=== PATIENT | female | born 2000 | race Hispanic/Latino ===

== ENCOUNTER 2019-04-21 00:52 | Observation (INO) | payer MEDICAID ==
[~2019-04-21] VITALS: Ht 142.2 cm; Wt 86.2 kg
[2019-04-21] VITALS (10 sets, daily range): BP systolic 77–118; BP diastolic 56–70
[2019-04-21 01:29] LABS: BASOPHILS % (AUTO) 0.6 % (0.0-5.0); EOSINOPHILS % (AUTO) 1.4 % (0.0-8.0); HEMATOCRIT 34.5 % (36-48); LYMPHOCYTES % (AUTO) 29.7 % (21.0-51.0); MEAN CORPUSCULAR HEMOGLOBIN 24.8 pg (27.0-33.0); MEAN CORPUSCULAR HGB CONC 32.6 g/dL (32.0-36.0); MEAN CORPUSCULAR VOLUME 76.1 fL (80-100); MONOCYTES % (AUTO) 7.3 % (3.0-13.0); PLATELET COUNT (AUTO) 211 K/uL (130-400); RED BLOOD CELL COUNT(AUTO) 4.53 MIL/uL (4.00-5.50); RED CELL DISTRIBUTION WIDTH 17.5 % (11.0-15.5)
[2019-04-21 01:39] LABS: CREATININE 0.9 mg/dL (0.5-1.5); POTASSIUM 3.3 mmol/L (3.5-5.1)
[2019-04-21 01:43] LABS: ALBUMIN 3.4 g/dL (3.5-5.0); BILIRUBIN,TOTAL 0.1 mg/dL (0.2-1.0); TOTAL PROTEIN, SERUM 7.7 g/dL (6.0-8.3)
[2019-04-21 01:53] LABS: HCG,QUAL RESULT POSITIVE (NEGATIVE)
[2019-04-21 01:56] LABS: APPEARANCE,URINE Cloudy (CLEAR); BILIRUBIN,URINE Negative (NEGATIVE); COLOR,URINE Orange (YELLOW); GLUCOSE, URINE (UA) Negative (NEGATIVE); KETONES,URINE Negative (NEGATIVE); LEUKOCYTE ESTERASE ,URINE Moderate (NEGATIVE); NITRATE,URINE Negative (NEGATIVE); OCCULT BLOOD,URINE Large (NEGATIVE); PH,URINE 5.5 (5.0-8.0); PROTEIN,URINE POS 2+ mg/dL (NEGATIVE)
[2019-04-21 01:59] LABS: AMORPHOUS SEDIMENT,UR Moderate /LPF (None Seen); BACTERIA,URINE Moderate /HPF (None Seen); MUCUS,URINE Moderate LPF (None Seen); RBC,URINE TNTC /HPF (0-1); SQUAMOUS EPITHELIAL CELL,UR Few /HPF (0-2); WBC,URINE 26-50 /HPF (0-1)
[2019-04-21] MEDS ORDERED: SODIUM CHLORIDE 0.9% 1000ML 1,000 ML IV ONE (02:14)
[2019-04-21] MEDS ORDERED: METRONIDAZOLE 500MG/100ML BAG 100 ML ONE (02:14)
[2019-04-21] MEDS ORDERED: ZOSYN 3.375GM+NS 50ML 50 ML IV ONE (02:14)
[2019-04-21] MEDS ORDERED: KETOROLAC TROMETHAMINE 30MG/ML IV PRN (04:30)
[2019-04-21] MEDS ORDERED: SODIUM CHLORIDE 0.9% 1000ML 1,000 ML IV SCH (04:30)
--- NOTE | 2019-04-21 07:15 | NUR ---
pt was taken to L&D via her bed by Gee Domínguez RN Addendum: 04/21/19 at 0744 by MONI SALAMANCA RN Amended: Links added.
--- NOTE | 2019-04-21 07:15 | NUR ---
Patient was taken to l/d via bed for D&C by Gee Ramon prior to assessment. Patient stable per report and afebrile.
[2019-04-21] MEDS ORDERED: LIDOCAINE PF 2% 5ML ABBOJECT ONE (07:27)
[2019-04-21] MEDS ORDERED: ROCURONIUM 10MG/1ML SYR 10 MG/ML ML ONE (07:28)
[2019-04-21] MEDS ORDERED: ONDANSETRON HCL 4 MG/2 ML VIAL ONE (07:28)
[2019-04-21] MEDS ORDERED: PROPOFOL 10 MG/ML 20ML VIAL IV ONE (07:28)
[2019-04-21] MEDS ORDERED: FENTANYL CITRATE PF 50 MCG/1 ML 2ML VIAL ONE (07:29)
[2019-04-21] MEDS ORDERED: OXYTOCIN 10 USP UNITS/ML ONE (07:42)
--- NOTE | 2019-04-21 09:00 | NUR ---
REPORT RECEIVED FROM Page HANSON RN TO TRANSFER PATIENT BACK TO FLOOR. PATIENT IS STABLE AND INSTRUCTED ON PLAN OF CARE TO INCLUDE REPEAT OF CBC AT 1200NOON AND REPORT TO DR. JULIAN RESULTS. PATIENT HAD DILATATION AND CURETTAGE AND IS RETURNING BACK TO FLOOR WITH ORDERS TO CONTINUE ANTIBIOTICS DUE AT 10AM AND 11AM AND AFTER REPORTING RESULTS TO DR. JULIAN, HE WILL DECIDE IF PATIENT CAN GO HOME.
[2019-04-21] MEDS ORDERED: METRONIDAZOLE 500MG/100ML BAG 100 ML IV SCH (10:00)
[2019-04-21] MEDS ORDERED: ZOSYN 3.375GM+NS 50ML 50 ML IV SCH (11:00)
--- NOTE | 2019-04-21 11:30 | NUR ---
PATIENT WAS ASSISTED UP TO BATHROOM BY KATHERINE AND WAS ABLE TO VOID WITHOUT DIFFICULTY 300CC.
[2019-04-21 14:06] LABS: BASOPHILS % (AUTO) 0.6 % (0.0-5.0); EOSINOPHILS % (AUTO) 1.2 % (0.0-8.0); HEMATOCRIT 31.4 % (36-48); LYMPHOCYTES % (AUTO) 27.4 % (21.0-51.0); MEAN CORPUSCULAR HEMOGLOBIN 24.5 pg (27.0-33.0); MEAN CORPUSCULAR HGB CONC 32.2 g/dL (32.0-36.0); MEAN CORPUSCULAR VOLUME 76.3 fL (80-100); MONOCYTES % (AUTO) 6.6 % (3.0-13.0); NEUTROPHILS % (AUTO) 64.2 % (40.0-77.0); PLATELET COUNT (AUTO) 193 K/uL (130-400); RED BLOOD CELL COUNT(AUTO) 4.12 MIL/uL (4.00-5.50); RED CELL DISTRIBUTION WIDTH 17.9 % (11.0-15.5)
--- NOTE | 2019-04-21 15:30 | NUR ---
PATIENT HAD IV ANTIBIOTICS COMPLETED AND PIV WAS REMOVED. DISCHARGE INSTRUCTIONS GIVEN AND VITAL SIGNS OBTAINED. PATIENT DENIES PAIN. PATIENT ENCOURAGED AND INSTRUCTED TO CALL TUESDAY, FOR FOLLOW UP APPT. WITH [facility]. VERBALIZED UNDERSTANDING INSTRUCTIONS GIVEN.
--- NOTE | 2019-04-21 16:15 | NUR ---
PATIENT CALLED AND STATES HER RIDE WILL NOT BE HERE FOR ANOTHER 45 MINUTES.
--- NOTE | 2019-04-21 19:50 | NUR ---
PATIENT WAS TAKEN VIA W/C TO ER LOBBY TO WAIT FOR HER RIDE. PATIENT STABLE AND WAS ACCOMPANIED BY HER SIGNIFICANT OTHER.
== END 2019-04-21 19:50 | disposition home or self-care (01) ==
LOC: EDH 00:52 → EDHIP 00:53 → WSH 04:30
PROVIDERS: ADMIT Obstetrics & Gynecology; ATTEND Obstetrics & Gynecology
DX: O03.37 Sepsis following incomplete spontaneous abortion (principal); O99.351 Diseases of the nervous system complicating pregnancy, first trimester; O34.219 Maternal care for unspecified type scar from previous cesarean delivery; R56.9 Unspecified convulsions; Z3A.00 Weeks of gestation of pregnancy not specified
CPT/HCPCS: 36415; 59812; 76856; 80053; 81001; 81025; 83605; 85025 ×2; 86850; 86900; 86901; 87040 ×2; 88305 ×2; 96365; 96366 ×2; 96367; 99284; A4351; A4606; G0378 ×14; J2001; J2405; J2543 ×2; J2590; J2704; J3010; J3490 ×2; J7030; J7120; 59830

== ENCOUNTER 2019-09-24 18:13 | Emergency (ER) | payer MEDICAID | END 2019-09-24 19:37 | disposition home or self-care (01) | LOC: EDH 18:13 | DX: G89.29 Other chronic pain (principal); M79.10 Myalgia, unspecified site; Z98.890 Other specified postprocedural states; Z86.73 Personal history of transient ischemic attack (TIA), and cerebral infarction without residual deficits | CPT/HCPCS: 99281 ==

== ENCOUNTER 2019-10-01 18:23 | Emergency (ER) | payer MEDICAID ==
[2019-10-01 18:53] LABS: APPEARANCE,URINE Clear (CLEAR); BILIRUBIN,URINE Negative (NEGATIVE); COLOR,URINE Yellow (YELLOW); GLUCOSE, URINE (UA) Negative (NEGATIVE); KETONES,URINE Trace mg/dL (NEGATIVE); LEUKOCYTE ESTERASE ,URINE Negative (NEGATIVE); NITRATE,URINE Negative (NEGATIVE); OCCULT BLOOD,URINE Negative (NEGATIVE); PH,URINE 5.5 (5.0-8.0); PROTEIN,URINE Negative (NEGATIVE)
[2019-10-01 18:55] LABS: HCG,QUAL RESULT NEGATIVE (NEGATIVE)
== END 2019-10-01 19:53 | disposition home or self-care (01) ==
LOC: EDH 18:23
DX: R10.9 Unspecified abdominal pain (principal)
CPT/HCPCS: 81003; 81025

== ENCOUNTER 2020-03-19 22:13 | Emergency (ER) | payer MEDICAID ==
[2020-03-19 23:43] LABS: BASOPHILS % (AUTO) 0.4 % (0.0-5.0); EOSINOPHILS % (AUTO) 1.3 % (0.0-8.0); HEMATOCRIT 37.1 % (36-48); LYMPHOCYTES % (AUTO) 28.7 % (21.0-51.0); MEAN CORPUSCULAR HEMOGLOBIN 22.7 pg (27.0-33.0); MEAN CORPUSCULAR HGB CONC 31.3 g/dL (32.0-36.0); MEAN CORPUSCULAR VOLUME 72.6 fL (80-100); MONOCYTES % (AUTO) 6.5 % (3.0-13.0); NEUTROPHILS % (AUTO) 62.9 % (40.0-77.0); PLATELET COUNT (AUTO) 174 K/uL (130-400); RED BLOOD CELL COUNT(AUTO) 5.11 MIL/uL (4.00-5.50); WHITE BLOOD COUNT (AUTO) 9.4 K/uL (4.8-10.8)
[2020-03-20 00:11] LABS: CREATININE 0.7 mg/dL (0.5-1.5); POTASSIUM 5.4 mmol/L (3.5-5.1)
[2020-03-20 00:14] LABS: APPEARANCE,URINE Clear (CLEAR); BILIRUBIN,URINE Negative (NEGATIVE); COLOR,URINE Yellow (YELLOW); GLUCOSE, URINE (UA) Negative (NEGATIVE); KETONES,URINE Trace mg/dL (NEGATIVE); LEUKOCYTE ESTERASE ,URINE Moderate (NEGATIVE); NITRATE,URINE Negative (NEGATIVE); OCCULT BLOOD,URINE Negative (NEGATIVE); PROTEIN,URINE Negative (NEGATIVE)
[2020-03-20 00:15] LABS: ALBUMIN 3.5 g/dL (3.5-5.0); BILIRUBIN,TOTAL 0.2 mg/dL (0.2-1.0); TOTAL PROTEIN, SERUM 8.1 g/dL (6.0-8.3)
[2020-03-20 00:17] LABS: HCG,QUAL RESULT NEGATIVE (NEGATIVE)
[2020-03-20 00:33] LABS: BACTERIA,URINE Few /HPF (None Seen)
[2020-03-20] MEDS ORDERED: SULFAMETHOX-TMP DS 800/160 TAB ONE (01:47)
== END 2020-03-20 02:06 | disposition home or self-care (01) ==
LOC: EDH 22:13
DX: N39.0 Urinary tract infection, site not specified (principal)
CPT/HCPCS: 36415; 76705; 80053; 81001; 81025; 82150; 83690; 85025; 87077; 87088; 87186

== ENCOUNTER 2020-05-15 19:10 | Emergency (ER) | payer MEDICAID ==
[2020-05-15 19:39] LABS: APPEARANCE,URINE Clear (CLEAR); BILIRUBIN,URINE Negative (NEGATIVE); COLOR,URINE Yellow (YELLOW); GLUCOSE, URINE (UA) Negative (NEGATIVE); KETONES,URINE Negative (NEGATIVE); LEUKOCYTE ESTERASE ,URINE Trace (NEGATIVE); NITRATE,URINE Negative (NEGATIVE); OCCULT BLOOD,URINE Large (NEGATIVE); PROTEIN,URINE POS 1+ mg/dL (NEGATIVE)
[2020-05-15 19:42] LABS: HCG,QUAL RESULT NEGATIVE (NEGATIVE)
[2020-05-15 19:47] LABS: RBC,URINE None Seen /HPF (0-1)
[2020-05-15 19:48] LABS: BACTERIA,URINE Few /HPF (None Seen); MUCUS,URINE Few LPF (None Seen); SQUAMOUS EPITHELIAL CELL,UR 0-2 /HPF (0-2)
[2020-05-15 19:49] LABS: BASOPHILS % (AUTO) 0.6 % (0.0-5.0); EOSINOPHILS % (AUTO) 1.4 % (0.0-8.0); HEMATOCRIT 37.8 % (36-48); LYMPHOCYTES % (AUTO) 30.5 % (21.0-51.0); MEAN CORPUSCULAR HEMOGLOBIN 23.3 pg (27.0-33.0); MEAN CORPUSCULAR HGB CONC 31.2 g/dL (32.0-36.0); MEAN CORPUSCULAR VOLUME 74.7 fL (80-100); MONOCYTES % (AUTO) 5.9 % (3.0-13.0); NEUTROPHILS % (AUTO) 61.4 % (40.0-77.0); PLATELET COUNT (AUTO) 237 K/uL (130-400); RED BLOOD CELL COUNT(AUTO) 5.06 MIL/uL (4.00-5.50); RED CELL DISTRIBUTION WIDTH 16.6 % (11.0-15.5); WHITE BLOOD COUNT (AUTO) 8.5 K/uL (4.8-10.8)
[2020-05-15 20:01] LABS: CREATININE 0.8 mg/dL (0.5-1.5); POTASSIUM 3.8 mmol/L (3.5-5.1)
[2020-05-15 20:05] LABS: ALBUMIN 3.7 g/dL (3.5-5.0); BILIRUBIN,TOTAL 0.1 mg/dL (0.2-1.0); TOTAL PROTEIN, SERUM 8.1 g/dL (6.0-8.3)
== END 2020-05-15 20:27 | disposition home or self-care (01) ==
LOC: EDH 19:10
DX: G89.29 Other chronic pain (principal); R10.10 Upper abdominal pain, unspecified
CPT/HCPCS: 36415; 80053; 81001; 81025; 83690; 85025; 87088